=== PATIENT | male | born 1975 | race Caucasian/White ===

== ENCOUNTER 2016-10-14 11:49 | Emergency (ER) | payer OTHER ==
[2016-10-14 11:56] VITALS: BP 116/80; PULSE 78; RESP 16; TEMP 97
--- NOTE | 2016-10-14 12:30 | ED ---
ENT HPI - General Chief complaint: ENT Stated complaint: sore throat Time Seen by Provider: 10/14/16 12:04 Source: patient Mode of arrival: ambulatory Limitations: no limitations - History of Present Illness Initial comments: [id number] male patient presents to emergency department today for evaluation of sore throat and hoarse voice that has been going on for the last 3 weeks. 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 Patient states that after this job he has had sore throat, painful swallowing, and has lost his voice. Patient denies any fevers or chills at this. States that he does have an occasional cough and does cough up sputum. The patient states the pain is not localized to one side or the other but that it feels like his whole throat is sore and raw. Patient denies any nasal congestion or drainage other than his normal ALLERGY drainage. He denies any headache, dizziness, weakness, chest pain, shortness of breath, abdominal pain, nausea, vomiting, earache, rashes, joint pain, genital discharge, or other sick contacts. Patient admits to smoking both cigarettes and marijuana. - Related Data Allergies Allergy/AdvReac Type Severity Reaction Status Date / Time No Known Allergies Allergy Verified 10/14/16 11:55 Review of Systems ROS Statement: Those systems with pertinent positive or pertinent negative responses have been documented in the HPI. ROS Other: All systems not noted in ROS Statement are negative. Past Medical History Past Medical History: Asthma History of Any Multi-Drug Resistant Organisms: None Reported Past Surgical History: No Surgical Hx Reported Past Psychological History: Depression Smoking Status: Current every day smoker Past Alcohol Use History: Rare Past Drug Use History: Marijuana General Exam Limitations: no limitations General appearance: alert, in no apparent distress Head exam: Present: atraumatic, normocephalic, normal inspection Eye exam: Present: normal appearance, PERRL, EOMI. Absent: scleral icterus, conjunctival injection, periorbital swelling ENT exam: Present: normal exam, mucous membranes moist, TM's normal bilaterally , other (Hoarse voice noted during exam.). Absent: normal oropharynx ( Oropharyngeal erythema, he is able to handle secretions, no intraoral lesions noted, no strawberry tongue, no pole that all petechiae. Tonsils are symmetrical. No exudate noted. Uvula midline.) Neck exam: Present: normal inspection. Absent: tenderness, meningismus, lymphadenopathy Respiratory exam: Present: normal lung sounds bilaterally. Absent: respiratory distress, wheezes, rales, rhonchi, stridor Cardiovascular Exam: Present: regular rate, normal rhythm, normal heart sounds. Absent: systolic murmur, diastolic murmur, rubs, gallop, clicks GI/Abdominal exam: Present: soft, normal bowel sounds. Absent: distended, tenderness, guarding, rebound, rigid Neurological exam: Present: alert, oriented X3, CN II-XII intact Psychiatric exam: Present: normal affect, normal mood Skin exam: Present: warm, dry, intact, normal color. Absent: rash Course Vital Signs 10/14/16 11:51 Temperature 97.0 F L Pulse Rate 78 Respiratory 16 Rate Blood Pressure 116/80 O2 Sat by Pulse 97 Oximetry Medical Decision Making - Medical Decision Making 41-year-old male patient presented to emergency department today for evaluation of sore throat and hoarse voice. Patient did do a job at that time where he is exposed to fumes and chemicals. Patient will be given an IM dose of Decadron here in the department. He will be discharged with instructions to follow-up with ears nose and throat specialist as soon as he can. The patient currently doesn't have insurance but states it will be kicking and soon he'll be able to do that. Patient also instructed to take anti-inflammatories for symptom control. Instructed to rest his voice as much as possible and gargle with salt water. Patient to follow up his primary care physician in one to 2 days for recheck. Instructed to return immediately for any new, worsening, or concerning symptoms. Patient verbalizes understanding and agreement with this plan. - Lab Data Lab Results 10/14/16 Range/Units 12:17 Group A Strep Rapid Negative (Negative) Disposition Clinical Impression: Sore throat and laryngitis Disposition: HOME SELF-CARE Condition: Good Instructions: Pharyngitis (ED), Laryngitis (ED) Additional Instructions: Rest voice is much as possible. Gargle with salt water. Use anti- inflammatories for symptom control. Follow up with ENT as soon as you can. Return really for a new, worsening, or concerning symptoms. Referrals: None,Stated [Primary Care Provider] - 1-2 days Sandeep Wells MD [STAFF PHYSICIAN] - 1-2 days Time of Disposition: 12:33
[2016-10-14] MEDS ORDERED: DEXAMETHASONE SOD PHOSPHATE 10 MG/ML 1 ML VIAL IM STA (12:34)
== END 2016-10-14 12:45 | disposition home or self-care (01) ==
LOC: EC 11:49
DX: J02.9 Acute pharyngitis, unspecified (principal); J04.0 Acute laryngitis; F17.200 Nicotine dependence, unspecified, uncomplicated
CPT/HCPCS: 87081; 87430; 99283; 96372; J1100

== ENCOUNTER 2017-03-22 14:42 | Inpatient (IN) | payer OTHER ==
[2017-03-22] MEDS ORDERED: SODIUM CHLORIDE 0.9% 1,000 ML IV STA (15:34)
[2017-03-22 15:48] LABS: Basophils # (A) 0.1 k/uL (0-0.2); Basophils % (A) 1 %; Eosinophils # (A) 0.2 k/uL (0-0.7); Eosinophils % (A) 3 %; HCT 44.3 % (39.0-53.0); HGB 14.6 gm/dL (13.0-17.5); Lymphocytes # (A) 1.6 k/uL (1.0-4.8); Lymphocytes % (A) 22 %; MCHC 32.9 g/dL (31.0-37.0); MCV 94.3 fL (80.0-100.0); Mean Platelet Volume 8.1; Monocytes # (A) 0.4 k/uL (0-1.0); Monocytes % (A) 6 %; Neutrophils # (A) 4.7 k/uL (1.3-7.7); Neutrophils % (A) 65 %; Platelet Count 221 k/uL (150-450); WBC 7.1 k/uL (3.8-10.6)
--- NOTE | 2017-03-22 15:50 | ED ---
Abdominal Pain HPI - General Chief Complaint: Abdominal Pain Stated Complaint: Eyes /Skin turning yellow Time Seen by Provider: 03/22/17 15:20 Source: patient, RN notes reviewed Mode of arrival: ambulatory Limitations: no limitations - History of Present Illness Initial Comments: 41-year-old male presents emergency Department chief complaint of discoloration of his eyes and skin. Patient states that his brother noticed that his eyes were turning yellow. Patient states that last week he had some nausea vomiting diarrhea. He states that has resolved he states his stools becoming more formed again thoroughly states it's a letter color than usual. He does notice that his urine is darker than usual. Patient states he has not been diagnosed with hepatitis. Patient states that when he was in care home he was given hepatitis B vaccine but states does not know this was have a or B. Patient states that he does not use IV drug use but states he doesn't use cocaine and methamphetamines. Patient states he did have sexual activity with people that use IV drugs. Patient has no specific pain at this time he did complain of some right upper quadrant abdominal pain last week. - Related Data Home Medications Medication Instructions Recorded Confirmed Acetaminophen [Tylenol Extra 500 mg PO Q6H PRN 03/22/17 03/22/17 Strength] Allergies Allergy/AdvReac Type Severity Reaction Status Date / Time No Known Allergies Allergy Verified 03/22/17 15:35 Review of Systems ROS Statement: Those systems with pertinent positive or pertinent negative responses have been documented in the HPI. ROS Other: All systems not noted in ROS Statement are negative. Past Medical History Past Medical History: Asthma History of Any Multi-Drug Resistant Organisms: None Reported Past Surgical History: No Surgical Hx Reported Past Psychological History: Depression Smoking Status: Current every day smoker Past Alcohol Use History: Rare Past Drug Use History: Cocaine, Marijuana General Exam Limitations: no limitations General appearance: alert, in no apparent distress Head exam: Present: atraumatic, normocephalic, normal inspection Eye exam: Present: PERRL, EOMI, scleral icterus. Absent: normal appearance, conjunctival injection, periorbital swelling ENT exam: Present: mucous membranes moist. Absent: normal exam, normal oropharynx (Yellowing noted underneath the tongue) Neck exam: Present: normal inspection, full ROM. Absent: tenderness, meningismus, lymphadenopathy Respiratory exam: Present: normal lung sounds bilaterally. Absent: respiratory distress, wheezes, rales, rhonchi, stridor Cardiovascular Exam: Present: regular rate, normal rhythm, normal heart sounds. Absent: systolic murmur, diastolic murmur, rubs, gallop, clicks GI/Abdominal exam: Present: soft, normal bowel sounds. Absent: distended, tenderness, guarding, rebound, rigid Neurological exam: Present: alert, oriented X3, CN II-XII intact Skin exam: Present: warm, dry, intact, normal color. Absent: rash Course Vital Signs 03/22/17 15:05 Temperature 97.7 F Pulse Rate 76 Respiratory 16 Rate Blood Pressure 120/71 O2 Sat by Pulse 98 Oximetry Medical Decision Making - Lab Data Result diagrams: 03/22/17 15:27 03/22/17 15:27 Lab Results 03/22/17 03/22/17 03/22/17 Range/Units 15:27 15:27 15:27 WBC 7.1 (3.8-10.6) k/uL RBC 4.70 (4.30-5.90) m/uL Hgb 14.6 (13.0-17.5) gm/dL Hct 44.3 (39.0-53.0) % MCV 94.3 (80.0-100.0) fL MCH 31.0 (25.0-35.0) pg MCHC 32.9 (31.0-37.0) g/dL RDW 16.0 H (11.5-15.5) % Plt Count 221 (150-450) k/uL Neutrophils % 65 % Lymphocytes % 22 % Monocytes % 6 % Eosinophils % 3 % Basophils % 1 % Neutrophils # 4.7 (1.3-7.7) k/uL Lymphocytes # 1.6 (1.0-4.8) k/uL Monocytes # 0.4 (0-1.0) k/uL Eosinophils # 0.2 (0-0.7) k/uL Basophils # 0.1 (0-0.2) k/uL PT (9.0-12.0) sec INR (<1.2) APTT (22.0-30.0) sec Sodium 140 (137-145) mmol/L Potassium 3.9 (3.5-5.1) mmol/L Chloride 103 (98-107) mmol/L Carbon Dioxide 24 (22-30) mmol/L Anion Gap 13 mmol/L BUN 11 (9-20) mg/dL Creatinine 0.80 (0.66-1.25) mg/dL Est GFR (MDRD) Af Amer >60 (>60 ml/min/1.73 sqM) Est GFR (MDRD) Non-Af >60 (>60 ml/min/1.73 sqM) Glucose 122 H (74-99) mg/dL Plasma Lactic Acid Nicolas 1.4 (0.7-2.0) mmol/L Calcium 8.8 (8.4-10.2) mg/dL Magnesium 1.9 (1.6-2.3) mg/dL Total Bilirubin 6.3 H (0.2-1.3) mg/dL Conjugated Bilirubin 2.0 H (0.0-0.3) mg/dL Unconjugated Bilirubin 1.0 (0.0-1.1) mg/dL Delta Bilirubin 3.3 H (0.0-0.2) mg/dL AST 88 H (17-59) U/L ALT 310 H (21-72) U/L Alkaline Phosphatase 250 H (38-126) U/L Total Protein 7.9 (6.3-8.2) g/dL Albumin 3.4 L (3.5-5.0) g/dL Amylase 41 (30-110) U/L Lipase 84 (23-300) U/L Acetaminophen <10.0 ug/mL 03/22/17 Range/Units 15:27 WBC (3.8-10.6) k/uL RBC (4.30-5.90) m/uL Hgb (13.0-17.5) gm/dL Hct (39.0-53.0) % MCV (80.0-100.0) fL MCH (25.0-35.0) pg MCHC (31.0-37.0) g/dL RDW (11.5-15.5) % Plt Count (150-450) k/uL Neutrophils % % Lymphocytes % % Monocytes % % Eosinophils % % Basophils % % Neutrophils # (1.3-7.7) k/uL Lymphocytes # (1.0-4.8) k/uL Monocytes # (0-1.0) k/uL Eosinophils # (0-0.7) k/uL Basophils # (0-0.2) k/uL PT 10.4 (9.0-12.0) sec INR 1.1 (<1.2) APTT 23.8 (22.0-30.0) sec Sodium (137-145) mmol/L Potassium (3.5-5.1) mmol/L Chloride (98-107) mmol/L Carbon Dioxide (22-30) mmol/L Anion Gap mmol/L BUN (9-20) mg/dL Creatinine (0.66-1.25) mg/dL Est GFR (MDRD) Af Amer (>60 ml/min/1.73 sqM) Est GFR (MDRD) Non-Af (>60 ml/min/1.73 sqM) Glucose (74-99) mg/dL Plasma Lactic Acid Nicolas (0.7-2.0) mmol/L Calcium (8.4-10.2) mg/dL Magnesium (1.6-2.3) mg/dL Total Bilirubin (0.2-1.3) mg/dL Conjugated Bilirubin (0.0-0.3) mg/dL Unconjugated Bilirubin (0.0-1.1) mg/dL Delta Bilirubin (0.0-0.2) mg/dL AST (17-59) U/L ALT (21-72) U/L Alkaline Phosphatase (38-126) U/L Total Protein (6.3-8.2) g/dL Albumin (3.5-5.0) g/dL Amylase (30-110) U/L Lipase (23-300) U/L Acetaminophen ug/mL Disposition Clinical Impression: Hepatitis, Jaundice Disposition: ADMITTED IP TO THIS HOSP Condition: Fair Referrals: None,Stated [Primary Care Provider] - 1-2 days
[2017-03-22 16:01] LABS: ALT 310 U/L (21-72); AST 88 U/L (17-59); Acetaminophen <10.0 ug/mL; Albumin 3.4 g/dL (3.5-5.0); Alkaline Phosphatase 250 U/L (38-126); Amylase 41 U/L (30-110); Anion Gap 13 mmol/L; Bilirubin, Delta 3.3 mg/dL (0.0-0.2); Blood Urea Nitrogen 11 mg/dL (9-20); Calcium 8.8 mg/dL (8.4-10.2); Carbon Dioxide 24 mmol/L (22-30); Chloride 103 mmol/L (98-107); Glucose 122 mg/dL (74-99); Lipase 84 U/L (23-300); Magnesium 1.9 mg/dL (1.6-2.3); Potassium 3.9 mmol/L (3.5-5.1); Sodium 140 mmol/L (137-145); Total Bilirubin 6.3 mg/dL (0.2-1.3); Total Protein 7.9 g/dL (6.3-8.2)
[2017-03-22 16:07] LABS: INR 1.1 (<1.2); Partial Thromboplastin Time 23.8 sec (22.0-30.0); Prothrombin Time 10.4 sec (9.0-12.0)
--- NOTE | 2017-03-22 16:44 | US ---
EXAMINATION TYPE: US abdomen limited DATE OF EXAM: 03/22/2017 COMPARISON: NONE CLINICAL HISTORY: Pain. EC patient with eye icterus and skin jaundice noted x 4 days; patient stated is being assessed for Hepatitis A; patient drank coffee with cream one hour before US and last ate me al at 11:00 am. EXAM MEASUREMENTS: Liver Length: 18.4 cm Gallbladder Wall: 2.5mm CBD: 0.4 cm Right Kidney: 11.1 x 5.7 x 4.9 cm Pancreas: Tail obscured by overlying bowel gas Liver: upper limits of normal for size Gallbladder: partially contracted and may be due to non fasting state Evidence for sonographic Riggs's sign: No CBD: wnl Right Kidney: wnl Main Portal Vein Diameter: dilated at 1.6cm at kennedi hepatis (normal < or = 13.0cm); portal vein flow is documented toward liver. IMPRESSION: Slightly enlarged liver as well as slightly increased portal vein. The liver parenchyma a ppears borderline hyperechoic which could be due to hepatocellular disease, this would correlate with patient's history of hepatitis.
[2017-03-22] MEDS: SODIUM CHLORIDE 0.9% 1,000 ML IV SCH (17:40)
[2017-03-22 18:00] LABS: Appearance,Urine Clear (Clear); Bilirubin,Urine 2+ (Negative); Blood,Urine Negative (Negative); Color,Urine Dark Yellow; Glucose,Urine (UA) Negative (Negative); Ketones,Urine Negative (Negative); Leukocyte Esterase,Urine Negative (Negative); Nitrite,Urine Negative (Negative); PH, Urine 5.5 (5.0-8.0); Protein,Urine Negative (Negative); Specific Gravity,Urine 1.012 (1.001-1.035)
[2017-03-23] MEDS ORDERED: LORazepam 1 MG TAB PO PRN (01:55)
[2017-03-23 02:54] LABS: Amphetamine Screen,Urine Not Detected (NotDetected); Barbiturate Screen,Urine Not Detected (NotDetected); Benzodiazepines Screen,Urine Not Detected (NotDetected); Cocaine Screen,Urine Not Detected (NotDetected); Methadone Screen, Urine Not Detected (NotDetected); Opiate Screen,Urine Not Detected (NotDetected); Oxycodone Screen, Urine Not Detected (NotDetected); Phencyclidine Screen,Urine Not Detected (NotDetected); Tricyclic Antidepressant,Urine Not Detected (NotDetected); Urn Cannabinoid Scrn Detected (NotDetected)
[2017-03-23] MEDS: SODIUM CHLORIDE 0.9% 1,000 ML IV SCH ×2 (05:33→14:57)
[2017-03-23 08:27] LABS: ALT 242 U/L (21-72); AST 78 U/L (17-59); Albumin 3.1 g/dL (3.5-5.0); Alkaline Phosphatase 228 U/L (38-126); Anion Gap 8 mmol/L; Blood Urea Nitrogen 12 mg/dL (9-20); Calcium 8.5 mg/dL (8.4-10.2); Carbon Dioxide 24 mmol/L (22-30); Chloride 107 mmol/L (98-107); Glucose 96 mg/dL (74-99); Potassium 4.6 mmol/L (3.5-5.1); Sodium 139 mmol/L (137-145); Total Bilirubin 5.1 mg/dL (0.2-1.3); Total Protein 7.3 g/dL (6.3-8.2)
[2017-03-23 08:32] LABS: Anisocytosis Slight; Basophils # (A) 0.1 k/uL (0-0.2); Basophils % (A) 1 %; Eosinophils # (A) 0.2 k/uL (0-0.7); Eosinophils % (A) 3 %; HCT 45.5 % (39.0-53.0); HGB 14.3 gm/dL (13.0-17.5); Hypochromasia Slight; Lymphocytes # (A) 1.6 k/uL (1.0-4.8); Lymphocytes % (A) 25 %; MCH 30.9 pg (25.0-35.0); MCHC 31.4 g/dL (31.0-37.0); MCV 98.5 fL (80.0-100.0); Macrocytosis Slight; Mean Platelet Volume 8.5; Monocytes # (A) 0.4 k/uL (0-1.0); Monocytes % (A) 7 %; Neutrophils # (A) 3.7 k/uL (1.3-7.7); Neutrophils % (A) 59 %; Platelet Count 230 k/uL (150-450); RBC 4.62 m/uL (4.30-5.90); RDW 16.2 % (11.5-15.5); WBC 6.2 k/uL (3.8-10.6)
[2017-03-23] MEDS: NICOTINE 14MG/24HR PATCH TRANSDERM SCH ×2 (08:46→08:51)
[2017-03-23] MEDS ORDERED: PANTOPRAZOLE 40 MG/10 ML VIAL IVP SCH (09:00)
[2017-03-23 09:05] LABS: Stomatocytes Present
--- NOTE | 2017-03-23 09:15 | HP ---
HISTORY AND PHYSICAL DATE OF SERVICE: 03/22/2017 CHIEF COMPLAINT: Abdominal pain and as well as diarrhea and jaundice. HISTORY OF PRESENT ILLNESS: This 41-year-old gentleman with a past medical history of multiple medical problems including asthma, depression not being followed by any primary physician in the outpatient setting also had extensive history of substance abuse history including cocaine and marijuana also. The patient had an episode of diarrhea about a few weeks ago. Subsequently patient noted yellow jaundice of the eyes and the patient came to [facility] admitted for further evaluation. Diarrhea is improving at this time. There is no history of fever or rigors. There is no history of headache , loss of consciousness or seizures. The patient apparently also got vaccinated against hepatitis while in several years ago, the details unknown. PAST MEDICAL HISTORY: Asthma, depression, history of cocaine and marijuana. MEDICATIONS PRIOR TO ADMISSION: Medications prior to admission include Tylenol. ALLERGIES: None. FAMILY HISTORY: History of CHF and respiratory disorder in the family. SOCIAL HISTORY: Smoking, substance abuse, alcohol as mentioned earlier. REVIEW OF SYSTEMS: ENT: No diminished hearing or diminished vision. CARDIOVASCULAR SYSTEM: No angina. RESPIRATORY SYSTEM: No cough. GI: As mentioned earlier. : No dysuria. NERVOUS SYSTEM: No numbness or weakness. ALLERGY/IMMUNOLOGY: History of asthma. MUSCULOSKELETAL: As mentioned earlier. HEMATOLOGY/ONCOLOGY: No history of anemia. ENDOCRINE: No history of diabetes or hypothyroidism. CONSTITUTIONAL: As mentioned earlier. DERMATOLOGY: Negative. RHEUMATOLOGY: Negative. PSYCHIATRY: As mentioned earlier. PHYSICAL EXAMINATION: The patient is alert and oriented x3. The pulse is 67, blood pressure 96/53, respiration 18, temperature 98.2, pulse ox 98% on room air. HEENT: Conjunctivae icteric. Oral mucosa icteric. NECK: No jugular venous distention. No carotid bruit. No lymph node enlargement. CARDIOVASCULAR: S1 and S2. No S3 or S4. RESPIRATORY: Breath sounds diminished at the bases. A few scattered rhonchi. No crackles. ABDOMEN: Soft. Mild diffuse distention. Nontender. No mass palpable. No hepatosplenomegaly. No ascites. LEGS: No edema, no swelling. NERVOUS SYSTEM: Higher functions as mentioned earlier. Moves all 4 limbs. No focal motor or sensory deficits. LYMPHATICS: No lymphadenopathy of the neck, axillae or groin. SKIN: No ulcer, rash or bleeding. LABS: Hemoglobin is 14.6 otherwise glucose 122. Total bilirubin is 6.3, conjugate is 2, delta bilirubin is 3.3, AST 88, ALT 310, alkaline phosphatase 250. Albumin 3.4. ASSESSMENT: 1. Acute hepatitis for evaluation. 2. Diarrhea, rule out influenza or hepatitis A. 3. Polysubstance abuse including alcohol, cocaine, and marijuana. 4. History of asthma. 5. History of depression. RECOMMENDATIONS AND DISCUSSION: This 41-year-old gentleman who presented with multiple complex medical issues, will monitor the patient closely. Continue the current medications, continues symptomatic treatment. At this time, I recommend repeat labs and symptomatic treatment, hepatitis panel, gastroenterology consultation. Guarded prognosis because of multiple complex medical issues. Further recommendations to follow. Also recommend the patient to follow up with primary physician in the outpatient setting. MMMILTONL / RALPHN: [id number] / MTDD
[2017-03-23 13:50] LABS: Hepatitis A Antibody IgM Reactive (Non-Reactive); Hepatitis B Core IgM Non-Reactive (Non-Reactive)
--- NOTE | 2017-03-23 22:45 | PN ---
PROGRESS NOTE DATE OF SERVICE: 03/23/2017 This 41-year-old gentleman admitted with acute hepatitis. The patient is being closely monitored. No chest pain. No palpitations. No fever. Patient has continued jaundice. EXAM: Alert and oriented times three. Pulse 64, blood pressure 100/73, respiration 16, temperature 97.4, pulse ox 98% room air. HEENT: Conjunctivae normal. Neck: No jugular venous distention. CARDIOVASCULAR: S1, S2 muffled. Respiratory: Breath sounds diminished in the bases. A few scattered rhonchi. No crackles. Abdomen is soft, nontender. Legs are no edema. No focal deficits. LABORATORY DATA: CBC within normal limits and AST 78 and ALT is 242. Drug screen positive for THC and hepatitis A is IgM is reactive. ASSESSMENT: 1. Acute hepatitis possibly hepatitis A. 2. Diarrhea secondary to hepatitis C. 3. Polysubstance abuse including alcohol, cocaine, marijuana. 4. History of asthma. 5. History of depression. RECOMMENDATIONS AND DISCUSSION: Recommend to continue current management, current medications, symptomatic treatment. Closely follow with Gastroenterology. Also recommend infectious disease evaluation also. Guarded prognosis. Further recommendations to follow. MMODL / IJN: [id number] /
--- NOTE | 2017-03-24 01:12 | P.CONS ---
History of Present Illness - Reason for Consult Consult date: 03/23/17 Hepatitis - History of Present Illness The patient is a 41-year-old male who presented to the emergency Department with the chief complaint of discoloration of his eyes and skin. Patient states that his brother noticed that his eyes were turning yellow. Patient states that last week he had some nausea, vomiting and diarrhea. He states that this has resolved with his stools becoming more formed again but the color was disk and tape machine tender than usual. He does notice that his urine is darker than usual. Patient states he has not been diagnosed with hepatitis. Patient states that when he was in assisted he was given hepatitis B vaccine but states does not know if he had HAV vaccine. Patient states that he does not use IV drug use but states he does use cocaine and methamphetamines. Patient states he did have sexual activity with people that use IV drugs. Patient has no specific pain at this time he did complain of some right upper quadrant abdominal pain last week. Review of Systems Constitutional: Denies fever, chills, sweats, weight gain, or loss. HEENT: Negative for migraines, blurred vision or loss, earaches, drainage, tinnitus, oral mucosal lesions, dysphagia, or odynophagia. Cardiac: Negative for chest pain, arrhythmias, or palpitation. Respiratory: Negative for shortness of breath, hemoptysis, cough, or sputum production. Gastrointestinal: See HPI for pertinent findings. Genitourinary: Negative for hematuria, urgency, frequency, polyuria, dysuria. Musculoskeletal: Negative for muscle aches, swelling, arthritis, and arthralgias. Neurologic: Negative for stroke or TIA. Endocrine: Negative for thyroid problems. Skin: Negative for rash or itching. Psychiatric: Negative history for depression and anxiety Past Medical History Past Medical History: Asthma History of Any Multi-Drug Resistant Organisms: None Reported Past Surgical History: No Surgical Hx Reported Past Anesthesia/Blood Transfusion Reactions: No Reported Reaction Past Psychological History: Depression Smoking Status: Current every day smoker Past Alcohol Use History: Rare Past Drug Use History: Cocaine, Marijuana - Past Family History Mother Family Medical History: Congestive Heart Failure (CHF), Respiratory Disorder Medications and Allergies Home Medications Medication Instructions Recorded Confirmed Type Acetaminophen [Tylenol Extra 500 mg PO Q6H PRN 03/22/17 03/22/17 History Strength] Allergies Allergy/AdvReac Type Severity Reaction Status Date / Time No Known Allergies Allergy Verified 03/22/17 15:35 Physical Exam Vitals: Vital Signs Temp Pulse Pulse Resp BP BP Pulse Ox 03/23/17 07:00 97.6 F 66 16 110/65 96 03/23/17 00:20 98.8 F 74 18 112/59 97 03/22/17 23:38 97.9 F 71 18 116/78 95 03/22/17 20:58 98.0 F 64 18 100/49 100 03/22/17 19:46 98.3 F 67 18 96/53 96 03/22/17 17:45 97.9 F 78 16 130/70 98 03/22/17 15:05 97.7 F 76 16 120/71 98 Intake and Output 03/22/17 03/23/17 03/23/17 22:59 06:59 14:59 Intake Total 300 Balance 300 Intake: Oral 300 Other: # Voids 1 Weight 108.862 kg 106.549 kg General appearance: The patient is alert, oriented, in no acute distress. HET: Head is normocephalic and atraumatic. Pupils are equal and reactive. Conjunctivae pink, sclerae icteric. Oropharynx is clear without lesions. Neck: Supple without lymphadenopathy. Trachea midline. Heart: S1 S2. Regular rate and rhythm. Lungs: No crackles or wheezes are heard. Abdomen: Soft, nontender, nondistended with bowel sounds. No peritoneal signs. No palpable organomegaly or masses. Extremities: Normal skin color and turgor. No cyanosis, rash, ulceration, clubbing, or edema. Radial and pedal pulses are 2/4 bilaterally. Neurological: No focal deficits. Strength and sensation are grossly intact. Results CBC & Chem 7: 03/23/17 07:51 03/23/17 07:51 Labs: Abnormal Lab Results - Last 24 Hours (Table) 03/22/17 03/22/17 03/22/17 Range/Units 15:27 15:27 17:38 RDW 16.0 H (11.5-15.5) % Glucose 122 H (74-99) mg/dL Total Bilirubin 6.3 H (0.2-1.3) mg/dL Conjugated Bilirubin 2.0 H (0.0-0.3) mg/dL Delta Bilirubin 3.3 H (0.0-0.2) mg/dL AST 88 H (17-59) U/L ALT 310 H (21-72) U/L Alkaline Phosphatase 250 H (38-126) U/L Albumin 3.4 L (3.5-5.0) g/dL Urine Bilirubin 2+ H (Negative) U Methamphetamines Scrn (NotDetected) U Marijuana (THC) Screen (NotDetected) 03/23/17 03/23/17 03/23/17 Range/Units 02:25 07:51 07:51 RDW 16.2 H (11.5-15.5) % Glucose (74-99) mg/dL Total Bilirubin 5.1 H (0.2-1.3) mg/dL Conjugated Bilirubin (0.0-0.3) mg/dL Delta Bilirubin (0.0-0.2) mg/dL AST 78 H (17-59) U/L ALT 242 H (21-72) U/L Alkaline Phosphatase 228 H (38-126) U/L Albumin 3.1 L (3.5-5.0) g/dL Urine Bilirubin (Negative) U Methamphetamines Scrn Detected H (NotDetected) U Marijuana (THC) Screen Detected H (NotDetected) Assessment and Plan Assessment: Acute hepatitis, possibly infectious. Toxic hepatitis could be considered but is unlikely to cause this degree of jaundice. Plan: Await acute hepatitis serology results. Continue supportive care. Will follow with interest.
[2017-03-24] MEDS: SODIUM CHLORIDE 0.9% 1,000 ML IV SCH ×2 (06:15→10:35)
[2017-03-24] MEDS: NICOTINE 14MG/24HR PATCH TRANSDERM SCH (07:24)
[2017-03-24] MEDS ORDERED: PANTOPRAZOLE 40 MG TABLET PO SCH (07:30)
[2017-03-24 07:59] VITALS: BP 97/47; PULSE 63; RESP 16; TEMP 98.4
--- NOTE | 2017-03-24 10:14 | P.PN ---
Subjective Progress Note Date: 03/24/17 Principal diagnosis: Hepatitis Hepatitis A IgM positive. Bilirubin improved. Feels better. Afebrile. Requesting discharge. Objective - Vital Signs Vital signs: Vital Signs Temp 98.4 F 03/24/17 07:00 Pulse 63 03/24/17 07:00 Resp 16 03/24/17 07:00 BP 97/47 03/24/17 07:00 Pulse Ox 95 03/24/17 07:00 Intake & Output 03/23/17 03/24/17 03/24/17 18:59 06:59 18:59 Intake Total 600 Balance 600 Intake: Oral 600 Other: # Voids 3 1 - Exam General appearance: The patient is alert, oriented, in no acute distress. Jaundice. Sclera icterus. HET: Head is normocephalic and atraumatic. Pupils are equal and reactive. Oropharynx is clear without lesions. Neck: Supple without lymphadenopathy. Trachea midline. Heart: S1 S2. Regular rate and rhythm. Lungs: No crackles or wheezes are heard. Abdomen: Soft, mild RUQ tenderness, nondistended with bowel sounds. No peritoneal signs. No palpable organomegaly or masses. Extremities: Normal skin color and turgor. No cyanosis, rash, ulceration, clubbing, or edema. Radial and pedal pulses are 2/4 bilaterally. Neurological: No focal deficits. Strength and sensation are grossly intact. - Labs CBC & Chem 7: 03/23/17 07:51 03/23/17 07:51 Labs: Abnormal Lab Results - Last 24 Hours (Table) 03/22/17 Range/Units 15:27 Hepatitis A IgM Ab Reactive H (Non-Reactive) Assessment and Plan (1) Hepatitis A Current Visit: Yes Status: Acute Code(s): B15.9 - HEPATITIS A WITHOUT HEPATIC COMA SNOMED Code(s): 52503489 Plan: 1. DC per medicine. 2. Hepatitis A education transmission reviewed with patient. 3. Follow up with PCP as advised. Assessment and plan of care discussed with Dr. Gilbert
[2017-03-24 10:34] LABS: ALT 184 U/L (21-72); AST 68 U/L (17-59); Alkaline Phosphatase 186 U/L (38-126); Anion Gap 10 mmol/L; Blood Urea Nitrogen 11 mg/dL (9-20); Calcium 8.5 mg/dL (8.4-10.2); Carbon Dioxide 24 mmol/L (22-30); Chloride 106 mmol/L (98-107); Glucose 118 mg/dL (74-99); Potassium 4.2 mmol/L (3.5-5.1); Sodium 140 mmol/L (137-145); Total Bilirubin 4.2 mg/dL (0.2-1.3); Total Protein 7.1 g/dL (6.3-8.2)
[2017-03-24 11:22] LABS: Basophils # (A) 0.1 k/uL (0-0.2); Basophils % (A) 1 %; Eosinophils # (A) 0.1 k/uL (0-0.7); Eosinophils % (A) 3 %; HCT 41.8 % (39.0-53.0); HGB 13.1 gm/dL (13.0-17.5); Lymphocytes # (A) 1.4 k/uL (1.0-4.8); Lymphocytes % (A) 27 %; MCH 30.7 pg (25.0-35.0); MCHC 31.3 g/dL (31.0-37.0); MCV 98.1 fL (80.0-100.0); Mean Platelet Volume 8.1; Monocytes # (A) 0.3 k/uL (0-1.0); Monocytes % (A) 7 %; Neutrophils % (A) 58 %; Platelet Count 219 k/uL (150-450); RBC 4.27 m/uL (4.30-5.90); RDW 15.3 % (11.5-15.5); WBC 5.1 k/uL (3.8-10.6)
[2017-03-24 14:16] LABS: Poikilocytosis (M) Present; Target Cells Present
--- NOTE | 2017-03-24 21:31 | CONS ---
CONSULTATION DATE OF SERVICE: 03/24/2017. REASON FOR CONSULTATION: Acute hepatitis. HISTORY OF PRESENT ILLNESS: The patient is a 41-year-old male who presented to the ER at [facility] on the with chief complaints of yellow discoloration of his eyes and skin. The patient apparently started getting sick about 2 weeks ago with symptoms has been mostly generalized not feeling well. Some chills but no high-grade fever. Decreased appetite. The patient says he slept almost 3 days in a row. Subsequently the patient started feeling a little better and his appetite came back. The patient did not have any history of nausea, vomiting, or any diarrhea. He did have some vague right- sided abdominal pain, more of a dull aching 2 to 3 out of 10 and no radiation. The patient subsequently noticed his eyes and skin turning yellow that did concern him, hence he presented to the [facility] ER for further evaluation of the same. The patient did have an ultrasound of the abdomen that was suggestive slightly larger liver and increase of the portal vein, liver is borderline hyper echoic. The patient did not have any fever or elevated white count. The patient liver enzymes were elevated with a bilirubin of 6.3, ALT of 88, AST of 310. Urine drug screen positive for amphetamines, marijuana. The patient did have a hepatitis panel requested with hepatitis A IgM coming back positive. Hence, I have been asked to see the patient for further recommendations. REVIEW OF SYSTEMS: Constitutional: Positive for weakness. No fever, chills. Eyes: No complaint. ENT no complaint. Respiratory: No complaint. Cardiovascular: No complaint. Genitourinary: No complaint. GASTROINTESTINAL: As per HPI. Musculoskeletal: No complaint. Integumentary: As per HPI. PSYCHOLOGICAL: No complaint. Endocrine: No complaint. Neurological: No complaint. PAST MEDICAL HISTORY: Asthma and depression. PAST SURGICAL HISTORY: No major surgeries. SOCIAL HISTORY: Positive for smoking. Smokes about a pack a day. He did admit to marijuana and cocaine use. Rarely drinks. FAMILY HISTORY: Mother with history of congestive heart failure. ALLERGIES: No known drug allergies. MEDICATION: Medications include the patient is currently on Ativan, nicotine patch, Protonix , and IV fluid. PHYSICAL EXAMINATION: Blood pressure is 97/47 with a pulse of 63, temperature of 98.4 with no fever recorded this admission. He is 95% on room air. General description is a middle-aged male lying in bed in no distress. No tachypnea or accessory muscle of respiration use. HEENT examination scleral icterus is positive. Oral mucous membranes dry. No pharyngeal erythema or thrush. Neck trachea central. No thyromegaly. Lungs unlabored breathing. Clear to auscultation anteriorly. No wheeze or crackles. Heart S1, S2. Regular rate and rhythm. ABDOMEN: Soft, no tenderness. No guarding or rigidity. No organomegaly EXTREMITIES: No edema of the feet. Skin examination: No rash or mass palpable. Neurological: Patient is awake, alert, oriented times three. Mood and affect normal. Speech normal LABS: Hemoglobin is 13.1, white count 5.1 with a BUN of 11, creatinine 0.76. ALT is down to 186, bilirubin is 4.2, on admission was 6.3. DIAGNOSTIC IMPRESSION AND PLAN: Patient with acute hepatitis A in a patient who did have a history of marijuana use with recent outbreak related to the same could be the likely source of this infection for him with the patient's symptoms have shown clinical improvement and no evidence of any overt liver failure. PLAN: 1. The patient has been educated about his condition and how to prevent transmission in household setting. 2. Patient encouraged to get the hepatitis B vaccination if not already gotten. 3. Advise no alcohol intake or Tylenol and increase his fluid intake. 4. No need for any specific antiviral therapy. Thank you for this consultation. MMODL / IJN: [id number] / MTDD
--- NOTE | 2017-03-25 08:59 | DS ---
DISCHARGE SUMMARY DATE OF SERVICE: 03/24/2017 FINAL DIAGNOSIS: 1. Acute hepatitis A. 2. Diarrhea secondary to hepatitis A. 3. Polysubstance abuse including ETOH, cocaine, and marijuana. 4. History of asthma. 5. History of depression. DISCHARGE DISPOSITION: The patient will be discharged in a stable condition with guarded prognosis. HISTORY OF PRESENT ILLNESS: This is a 41-year-old gentleman, possibly admitted which featires of acute hepatitis A, diarrhea, elevated enzymes stenosis of the patient. Patient discharge symptoms improving at this time. Albumin is 4.2. Discharge diet is cardiac. Activity limited until followup Follow up with Dr. Marilee Taveras in 2 to 3 days; follow up with Dr. Gilbert as advised. Avoid tylenol and hepatotoxic medications. MEDICATIONS: 1. Habitrol 14 daily. 2. Protonix 40 mg daily. Patient to follow up with the primary physician or the ER and gastroenterology on a p.r.n. basis. NELI / STEVE: [id number] /
== END 2017-03-24 16:18 | disposition home or self-care (01) | DRG 443 ==
LOC: EC 14:42 → 4MS4W 17:31
PROVIDERS: ADMIT Internal Medicine; ATTEND Internal Medicine
DX: B15.9 Hepatitis A without hepatic coma (principal); F17.210 Nicotine dependence, cigarettes, uncomplicated; F32.9 Major depressive disorder, single episode, unspecified; J45.909 Unspecified asthma, uncomplicated
CPT/HCPCS: 36415; 76705; 80053; 80074; 80306; 81003; 82150; 82248; 83520; 83605; 83690; 83735; 85025; 85610; 85730; 87502; 96360; 96361; 99285

== ENCOUNTER 2017-12-14 06:16 | Emergency (ER) | payer OTHER ==
[2017-12-14 06:23] VITALS: TEMP 98.2
[2017-12-14] MEDS ORDERED: VANCOMYCIN IV PER PHARMACY 1 EACH MISC MISCELLANE PRN (06:35)
[2017-12-14] MEDS ORDERED: PIPERACILLIN-TAZOBACTAM 3.375 GM in DEXTROSE/WATER 1 50ML.BAG IVPB STA (06:35)
[2017-12-14] MEDS ORDERED: VANCOMYCIN 1,500 MG in SODIUM CHLORIDE 0.9% 250 ML IVPB STA (06:37)
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
[2017-12-14] MEDS ORDERED: MORPHINE SULFATE 4 MG/ML SYRINGE IVP STA (06:39)
[2017-12-14] MEDS ORDERED: SODIUM CHLORIDE 0.9% 1,000 ML IV SCH (06:45)
[2017-12-14] MEDS ORDERED: SODIUM CHLORIDE 0.9% 500 ML 500 ML IV SCH (06:45)
[2017-12-14] MEDS ORDERED: CLINDAMYCIN 600 MG in DEXTROSE 5% IN WATER 50 ML IVPB STA ×2 (06:48)
[2017-12-14 07:11] LABS: Basophils % (A) 0 %; Eosinophils # (A) 0.5 k/uL (0-0.7); Eosinophils % (A) 4 %; HCT 36.1 % (39.0-53.0); HGB 12.2 gm/dL (13.0-17.5); Lymphocytes # (A) 1.5 k/uL (1.0-4.8); Lymphocytes % (A) 12 %; MCH 31.8 pg (25.0-35.0); MCHC 33.8 g/dL (31.0-37.0); Mean Platelet Volume 6.9; Monocytes # (A) 0.9 k/uL (0-1.0); Monocytes % (A) 7 %; Neutrophils # (A) 9.9 k/uL (1.3-7.7); Neutrophils % (A) 76 %; Platelet Count 186 k/uL (150-450); RBC 3.85 m/uL (4.30-5.90); RDW 12.5 % (11.5-15.5); WBC 13.1 k/uL (3.8-10.6)
--- NOTE | 2017-12-14 07:12 | XR ---
EXAMINATION TYPE: XR forearm 2 views RT, XR hand limited 2 views RT DATE OF EXAM: 12/14/2017 COMPARISON: NONE HISTORY: 42-year-old male with pain after injury, rule out foreign body. FINDINGS: Forearm: Suboptimal positioning on the lateral view of the forearm for assessment of elbow joint effusion. Elb ow articulation appears grossly intact. There seems to be diffuse soft tissue swelling especially jorden ng the proximal half of the forearm. Tiny 2 to 3 mm radiodensity within the posterior soft tissues of the proximal forearm as indicated on the image. No acute fracture. Hand: There is mild degenerative change at the first CMC joint and triscaphe joint. No acute fracture, subl uxation, or dislocation is seen. Severe dorsal soft tissue swelling is noted. No retained radiopaque foreign body identified. COMBINED IMPRESSION: 1. Forearm: Diffuse soft tissue swelling especially posteriorly and along the proximal half of the fo rearm. There is a tiny 2 to 3 mm radiodensity in the posterior soft tissues of the proximal forearm t hat could represent tiny retained foreign body material or external debris. 2. Hand: Severe dorsal soft tissue swelling. No acute osseous abnormality seen.
[2017-12-14 07:21] LABS: ALT 23 U/L (21-72); AST 19 U/L (17-59); Albumin 2.9 g/dL (3.5-5.0); Alkaline Phosphatase 77 U/L (38-126); Anion Gap 8 mmol/L; Blood Urea Nitrogen 13 mg/dL (9-20); Calcium 8.5 mg/dL (8.4-10.2); Carbon Dioxide 24 mmol/L (22-30); Chloride 109 mmol/L (98-107); Glucose 93 mg/dL (74-99); Sodium 141 mmol/L (137-145); Total Bilirubin 0.5 mg/dL (0.2-1.3); Total Protein 5.9 g/dL (6.3-8.2)
[2017-12-14 07:52] LABS: Partial Thromboplastin Time 24.7 sec (22.0-30.0); Prothrombin Time 10.2 sec (9.0-12.0)
[2017-12-14 10:47] VITALS: BP 114/68
--- NOTE | 2017-12-14 10:49 | P.CNOR ---
History of Present Illness - [facility] Consult date: 12/14/17 Consult reason: other History of present illness: Patient is a 42-year-old male who reported to the emergency room early this morning with regards to pain, swelling and redness of the right hand. According to the emergency room notes, patient scraped his middle right knuckle doing some kind of mechanical work. Over the last few days it's gotten progressively worse. Apparently he was seen at another facility, he was given antibiotics for this. He reported to [facility] due to symptoms worsening. I was contacted by the emergency room staff initially, I was in the operating room scrubbed in. After finishing my case, I was able to reports emergency room to examine the patient. Patient was very lethargic, he was sleeping upon arrival. I was able to wake him up briefly, he was not able to answer my questions adequately. He then dosed back off to sleep. Remaining review of systems was unobtainable. Review of Systems Constitutional: Reports as per [facility] Past Medical History Past Medical History: Asthma History of Any Multi-Drug Resistant Organisms: None Reported Past Surgical History: No Surgical Hx Reported Past Anesthesia/Blood Transfusion Reactions: No Reported Reaction Past Psychological History: Depression Smoking Status: Current every day smoker Past Alcohol Use History: Rare Past Drug Use History: Cocaine, Marijuana - Past Family History Mother Family Medical History: Congestive Heart Failure (CHF), Respiratory Disorder Medications and Allergies Home Medications Medication Instructions Recorded Confirmed Type No Known Home Medications 12/14/17 12/14/17 History Allergies Allergy/AdvReac Type Severity Reaction Status Date / Time No Known Allergies Allergy Verified 12/14/17 08:21 Physical Examination Right upper extremity: Obvious erythema and soft tissue swelling noted throughout the entire dorsum of the hand. Some of the erythema does track up into the forearm. Exam of the palmar aspect of the hand, no significant erythema present. There is soft tissue swelling noted in the fingers and dorsum of the hand There is a scab and excoriated tissue noted over the middle right MCP. Fluctuance present over the dorsum of the hand, located more towards the radiocarpal joint. When I extend the fingers fully and flex them, the patient does not grimace in severe pain Radial pulses 2+ Due to the patient's severe lethargic stay, I'm unable to perform a full physical exam Results - Labs Labs: Abnormal Lab Results - Last 24 Hours (Table) 12/14/17 12/14/17 12/14/17 Range/Units 06:50 06:50 06:50 WBC 13.1 H (3.8-10.6) k/uL RBC 3.85 L (4.30-5.90) m/uL Hgb 12.2 L (13.0-17.5) gm/dL Hct 36.1 L (39.0-53.0) % Neutrophils # 9.9 H (1.3-7.7) k/uL Chloride 109 H (98-107) mmol/L Plasma Lactic Acid Nicolas 0.6 L (0.7-2.0) mmol/L Total Protein 5.9 L (6.3-8.2) g/dL Albumin 2.9 L (3.5-5.0) g/dL H & H 12/14/17 Range/Units 06:50 Hgb 12.2 L (13.0-17.5) gm/dL Hct 36.1 L (39.0-53.0) % Coagulation 12/14/17 Range/Units 06:50 INR 1.0 (<1.2) Result Diagrams: 12/14/17 06:50 12/14/17 06:50 Assessment and Plan Plan: Imaging: Multiple views of the right hand and forearm were reviewed. Images demonstrated no acute fractures or dislocations. There was question of a foreign body noted on the dorsal aspect of the forearm. I was unable to appreciate any soft tissue findings of that on my exam Assessment: 1. Right dorsal hand cellulitis/abscess Plan: I was able to discuss the case, including physical exam findings and imaging studies my attending Dr. Church. Due to the extent of the swelling and erythema involving the hand and distal forearm, I advised transfer to a tertiary care facility for a hand specialist for further evaluation and treatment. This will likely require extensive surgical debridement Clinically I believe there is a low probability of a compartment syndrome involving the right hand at this time Time with Patient: Less than 30
[2017-12-14 11:25] VITALS: PULSE 78; RESP 22
[2017-12-14] MEDS ORDERED: VANCOMYCIN 1,500 MG in SODIUM CHLORIDE 0.9% 250 ML IVPB SCH (16:00)
== END 2017-12-14 11:36 | disposition short-term general hospital (02) ==
LOC: EC 06:16
DX: L02.511 Cutaneous abscess of right hand (principal); A41.9 Sepsis, unspecified organism; R60.0 Localized edema; R00.0 Tachycardia, unspecified; D72.829 Elevated white blood cell count, unspecified; L03.113 Cellulitis of right upper limb; F17.200 Nicotine dependence, unspecified, uncomplicated; Z82.49 Family history of ischemic heart disease and other diseases of the circulatory system
CPT/HCPCS: 99285; 96365; 96366 ×3; 96368; 36415; 93005; 80053; 83605; 85025; 85610; 85730; 87040; 73090; 73120; J3370; J2543

== ENCOUNTER 2019-03-28 03:00 | Emergency (ER) | payer OTHER ==
[2019-03-28 03:09] VITALS: BP 103/58; PULSE 64; RESP 20; TEMP 98
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
== END 2019-03-28 04:44 | disposition home or self-care (01) ==
LOC: EC 03:00
DX: F10.129 Alcohol abuse with intoxication, unspecified (principal); F17.200 Nicotine dependence, unspecified, uncomplicated
CPT/HCPCS: 99282